=== PATIENT | male | born 1990 | race Caucasian/White ===

== ENCOUNTER 2022-05-25 11:56 | Emergency (ER) | payer OTHER, BC, SELFPAY ==
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
[2022-05-25 12:08] VITALS: BP 130/84; PULSE 116; RESP 16; TEMP 37.1; O2SAT 100
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
[2022-05-25] MEDS: KETOROLAC (*BKC) 60 MG/2 ML VIAL IM (13:33)
[2022-05-25] MEDS: CYCLOBENZAPRINE HCL 5 MG TABLET PO (13:38)
== END 2022-05-25 13:52 | disposition home or self-care (01) ==
PROVIDERS: Emergency Provider Emergency Medicine
DX: S39.012A Strain of muscle, fascia and tendon of lower back, initial encounter (principal); S16.1XXA Strain of muscle, fascia and tendon at neck level, initial encounter; M47.816 Spondylosis without myelopathy or radiculopathy, lumbar region; M47.814 Spondylosis without myelopathy or radiculopathy, thoracic region; V43.52XA Car driver injured in collision with other type car in traffic accident, initial encounter
CPT/HCPCS: 70450; 71046; 71100; 72125; 72128; 72131; 73564; 96372; 99284; A9270; J1885

== ENCOUNTER 2022-09-04 08:39 | Outpatient (CLI) | payer OTHER, SELFPAY ==
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
== END 2022-09-04 08:40 | disposition home or self-care (01) ==
PROVIDERS: Visit Provider Nurse Practitioner
DX: M54.2 Cervicalgia (principal); M51.24 Other intervertebral disc displacement, thoracic region; M47.896 Other spondylosis, lumbar region
CPT/HCPCS: 72141; 72146; 72148